=== PATIENT | female | born 1955 | race Hispanic/Latino ===

== ENCOUNTER 2024-02-24 09:00 | Outpatient (RCR) | payer MEDICARE ==
[~2024-02-24 09:00] MED LIST: COLACE100 M1 PO; PANTOPRAZOLE SO40 MG PO
== END 2024-02-28 ==
LOC: PT 09:00
PROVIDERS: ATTEND Student in an Organized Health Care Education/Training Program
DX: M54.30 Sciatica, unspecified side (principal)

== ENCOUNTER → 2024-05-21 | Outpatient (REF) | payer MEDICARE | LOC: RAD 09:58 | PROVIDERS: ATTEND Nurse Practitioner Family | DX: R05.3 Chronic cough (principal); R94.2 Abnormal results of pulmonary function studies | CPT/HCPCS: 93306 ==

== ENCOUNTER → 2025-06-06 | Outpatient (REF) | payer MEDICARE | LOC: RESP 09:58 | PROVIDERS: ATTEND Internal Medicine | DX: R05.3 Chronic cough (principal); R94.2 Abnormal results of pulmonary function studies; J30.9 Allergic rhinitis, unspecified; E66.9 Obesity, unspecified | CPT/HCPCS: 94060; 94727; 94729 ==